=== PATIENT | female | born 1980 | race African-American/Black ===

== ENCOUNTER 2016-10-15 20:04 | Emergency (ER) | payer BC ==
[2015-05-22 08:56] VITALS: BP 115/58
[~2016-10-15] VITALS: Ht 180.3 cm; Wt 90.7 kg
[2016-10-15] MEDS ORDERED: GUAI12003 PO (20:24)
[2016-10-15] MEDS ORDERED: LIDO20SO PO (20:24)
[2016-10-15] MEDS ORDERED: AMOX875T PO (20:24)
[2016-10-15] MEDS ORDERED: BENZ100C PO (20:24)
--- NOTE | 2016-10-15 20:24 | PHYS DOC ---
Past Medical History Past Medical History: No Pertinent History Past Surgical History: No Surgical History Alcohol Use: None Drug Use: None Adult General Chief Complaint Chief Complaint: SORE THROAT HPI HPI Patient is a 36 year old female who presents with cough, bilateral ear pain, sore throat, and nasal congestion that began 2 days ago. Review of Systems Review of Systems Constitutional: Denies fever or chills [] Eyes: Denies change in visual acuity, redness, or eye pain [] HENT: Nasal congestion and sore throat [] Respiratory: Cough Cardiovascular: No additional information not addressed in HPI [] GI: Denies abdominal pain, nausea, vomiting, bloody stools or diarrhea [] : Denies dysuria or hematuria [] Musculoskeletal: Denies back pain or joint pain [] Integument: Denies rash or skin lesions [] Neurologic: Denies headache, focal weakness or sensory changes [] Endocrine: Denies polyuria or polydipsia [] Allergies Allergies Allergies Coded Allergies Type Severity Reaction Last Updated Verified No Known Drug Allergies 05/22/15 No Physical Exam Physical Exam Constitutional: Well developed, well nourished, no acute distress, non-toxic appearance. [] HENT: Normocephalic, atraumatic, bilateral external ears normal, oropharynx moist, no oral exudates, patient is nasally congested. Bilateral TM are mildly injected with small amount of cloudy fluid right worse than left. Eyes: PERRLA, EOMI, conjunctiva normal, no discharge. [] Neck: Normal range of motion, no tenderness, supple, no stridor. [] Cardiovascular:Heart rate regular rhythm, no murmur [] Lungs & Thorax: Bilateral breath sounds clear to auscultation [] Abdomen: Bowel sounds normal, soft, no tenderness, no masses, no pulsatile masses. [] Skin: Warm, dry, no erythema, no rash. [] Back: No tenderness, no CVA tenderness. [] Extremities: No tenderness, no cyanosis, no clubbing, ROM intact, no edema. [] Neurologic: Alert and oriented X 3, normal motor function, normal sensory function, no focal deficits noted. [] Psychologic: Affect normal, judgement normal, mood normal. [] EKG EKG [] Radiology/Procedures Radiology/Procedures [] Course & Med Decision Making Course & Med Decision Making Pertinent Labs and Imaging studies reviewed. (See chart for details) Patient has bilateral otitis media with an upper respiratory infection. Discharged with amoxicillin for 10 days. Discharged with instructions to take [id number]-[id number] decongestants for nasal congestion. Saltwater gargles recommended. Follow-up with his own PCP in a week. Provided return precautions and discharged in stable condition. Dragon Disclaimer Dragon Disclaimer This electronic medical record was generated, in whole or in part, using a voice recognition dictation system. Departure Departure Impression: Primary Impression: Otitis media Additional Impressions: Upper respiratory infection Cough Pharyngitis Disposition: HOME, SELF-CARE Condition: STABLE Referrals: NO PCP (PCP) Follow-up with your doctor in one week Patient Instructions: Otitis Media, Adult, Upper Respiratory Infection, Adult Additional Instructions: You were seen for an ear infection, pharyngitis, and upper respiratory infection. Complete your antibiotics. Take [id number]-[id number] decongestants to help with nasal congestion. Use saltwater gargles as needed for sore throat. Follow-up with your doctor in one week. Come back to the ED for any concerning symptoms. Scripts Guaifenesin (Mucinex)1,200 Mg Tbmp.12hr1 Tab PO BID #14 TAB Prov:STEVIE UDONG APRN 10/15/16 Benzonatate (Tessalon Perle)100 Mg Capsule1 Cap PO TID #30 CAP Prov:STEVIE DUONG APRN 10/15/16 Lidocaine Hcl (Lidocaine Hcl Viscous)20 Mg/1 Ml Solution5 Ml PO TID #100 ML Prov:STEVIE DUONG APRN 10/15/16 Amoxicillin 875 Mg Tablet1 Tab PO BID #20 TAB Prov:STEVIE DUONG APRN 10/15/16 Problem Qualifiers Primary Impression: Otitis media Otitis media type: other nonsuppurative Laterality: bilateral Chronicity: acute Recurrence: not specified as recurrent Qualified Code: H65.193 - Other acute nonsuppurative otitis media, bilateral Additional Impressions: Upper respiratory infection URI type: unspecified URI Qualified Code: J06.9 - Acute upper respiratory infection, unspecified Pharyngitis Pharyngitis/tonsillitis etiology: unspecified etiology Qualified Code: J02.9 - Acute pharyngitis, unspecified STEVIE DUONG APRN Oct 15, 2016 20:24
== END 2016-10-15 20:25 | disposition home or self-care (01) ==
LOC: ER 20:04
DX: H65.193 Other acute nonsuppurative otitis media, bilateral (principal); J02.9 Acute pharyngitis, unspecified
CPT/HCPCS: 99283